=== PATIENT | female | born 1995 | race Caucasian/White ===

== ENCOUNTER 2017-06-07 17:33 | Emergency (ER) | payer OTHER ==
[2017-06-07 17:49] VITALS: BP 120/77; TEMP 98.9; BMI 38.0
[2017-06-07] MEDS ORDERED: CEPHALEXIN MONOHYDRATE 500 MG CAPSULE (UD) PO ONE (18:10)
--- NOTE | 2017-06-07 18:10 | PDOC ---
History of Present Illness - General Chief Complaint: Pain Stated Complaint: TAILBONE PAIN Time Seen by Provider: 06/07/17 17:44 - History of Present Illness Initial Comments: 06/07/17 18:16 "The patient is a 21 year old female with no significant PMH who presents to the emergency department complaining of intermittent episodes of lower back pain beginning approximately 2 days ago. Pt denies any trauma or falls. States that she feels swelling and pain in the middle of her lower back that is worse with sitting down. Pt has had multiple similar episodes in the past that have resolved spontaneously. Denies seeing any drainage or bleeding, denies h/o pilonidal abscess. Denies F/C. The patient denies chest pain, shortness of breath, headache, and dizziness. Denies fevers, chills, nausea, vomiting, diarrhea, and constipation. Denies dysuria, frequency, urgency, and hematuria. Allergies: NKA Past surgical history: Patient denies. Social history: No reported cigarette, alcohol, or drug use. " Past History - Past Medical History Allergies/Adverse Reactions: Allergies Allergy/AdvReac Type Severity Reaction Status Date / Time No Known Allergies Allergy Verified 06/07/17 17:43 Home Medications: Ambulatory Orders Cephalexin [Keflex] 500 mg PO BID #14 capsule 06/07/17 COPD: No - Immunization History Immunization Up to Date: Yes - Suicide/Smoking/Psychosocial Hx Smoking History: Never smoked Have you smoked in the past 12 months: No Hx Alcohol Use: No Drug/Substance Use Hx: No Substance Use Type: None Review of Systems - Review of Systems Comments:: 06/07/17 18:14 "GENERAL/CONSTITUTIONAL: No fever or chills. No weakness. HEAD, EYES, EARS, NOSE AND THROAT: No change in vision. No ear pain or discharge. No sore throat. CARDIOVASCULAR: No chest pain or shortness of breath. RESPIRATORY: No cough, wheezing, or hemoptysis. GASTROINTESTINAL: No nausea, vomiting, diarrhea or constipation. GENITOURINARY: No dysuria, frequency, or change in urination. MUSCULOSKELETAL: No joint or muscle swelling or pain. No neck or back pain. SKIN: + Swelling and redness mid lower back NEUROLOGIC: No headache, vertigo, loss of consciousness, or change in strength/ sensation. ENDOCRINE: No increased thirst. No abnormal weight change. HEMATOLOGIC/LYMPHATIC: No anemia, easy bleeding, or history of blood clots. ALLERGIC/IMMUNOLOGIC: No hives or skin allergy. *Physical Exam - Vital Signs Last Vital Signs Temp Pulse Resp BP Pulse Ox 98.9 F 110 H 16 120/77 100 06/07/17 17:43 06/07/17 17:43 06/07/17 17:43 06/07/17 17:43 06/07/17 17:43 - Physical Exam Comments: 06/07/17 18:13 "GENERAL: Awake, alert, and fully oriented, in no acute distress HEAD: No signs of trauma EYES: PERRLA, EOMI, sclera anicteric, conjunctiva clear ENT: Auricles normal inspection, hearing grossly normal, nares patent, oropharynx clear without exudates. Moist mucosa NECK: Nontender, no stepoffs, Normal ROM, supple, no lymphadenopathy, JVD, or masses LUNGS: Breath sounds equal, clear to auscultation bilaterally. No wheezes, and no crackles HEART: Regular rate and rhythm, normal S1 and S2, no murmurs, rubs or gallops ABDOMEN: Soft, nontender, normoactive bowel sounds. No guarding, no rebound. No masses EXTREMITIES: Normal range of motion, no edema. No clubbing or cyanosis. No cords, erythema, or tenderness NEUROLOGICAL: Cranial nerves II through XII intact. 5/5 strength and sensation in all extremities, Normal speech, normal gait, normal cerebellar function SKIN: + 2cm area of induration at L gluteal cleft, no fluctuance or drainage, mild erythema Medical Decision Making - Medical Decision Making 06/07/17 18:04 21 F with possible infected pilonidal cyst. However, unable to visualize collection on bedside ultrasound. Will empirically tx with abx and have pt f/u in 48 hours. - Keflex - f/u 48 hours Pt is well appearing, with normal vitals. Clinically stable for DC at this time. I discussed the physical exam findings, ancillary test results and final diagnoses with the patient. I answered all of the patient's questions. The patient was satisfied with the care received and felt comfortable with the discharge plan and treatment plan. The patient agrees to follow up with the primary care physician within 24-72 hours. *DC/Admit/Observation/Transfer Diagnosis at time of Disposition: Pilonidal cyst - Discharge Dispostion Disposition: HOME Condition at time of disposition: Good - Referrals Referrals: Candido Ward MD [Primary Care Provider] - Bruce Kenney MD [Staff Physician] - - Patient Instructions Printed Discharge Instructions: Pilonidal Cyst Additional Instructions: You may have an infection of something called a pilonidal cyst. We did not see an abscess on your ultrasound today that we could drain. However, you may still develop an abscess in the next few days, even while taking the antibiotics. superintendent storage area your antibiotics (keflex) at the pharmacy and take it as prescribed. If you do not have some relief of your pain in 48 hours, if you develop fevers or chills, or if your pain or swelling gets worse at any point, return to the ER immediately. Otherwise, follow up with a surgeon for permanent removal of your pilonidal cyst to prevent recurrent infections. - Post Discharge Activity - Attestations Physician Attestion: 06/07/17 18:13 I, Dr. Lewis De La Rosa MD, attest that this document has been prepared under my direction and personally reviewed by me in its entirety. I further attest, that it accurately reflects all work, treatment, procedures and medical decision -making performed by me.
[2017-06-07] MEDS ORDERED: ACETAMINOPHEN 325 MG TABLET (FP) PO ONE (18:16)
[2017-06-07] MEDS ORDERED: CEPHALEXIN MONOHYDRATE 500 MG CAPSULE (UD) ONE (18:20)
[2017-06-07] MEDS ORDERED: ACETAMINOPHEN 325 MG TABLET (FP) ONE (18:20)
[2017-06-07 18:38] VITALS: PULSE 100
== END 2017-06-07 18:42 | disposition home or self-care (01) ==
LOC: FER 17:33
DX: L05.91 Pilonidal cyst without abscess (principal)
CPT/HCPCS: 99282-25

== ENCOUNTER 2017-06-10 20:10 | Emergency (ER) | payer OTHER ==
[2017-06-10 20:16] VITALS: BP 128/83; PULSE 73; TEMP 97.3; BMI 37.6
--- NOTE | 2017-06-10 21:41 | PDOC ---
Suture Removal/Wound Check HPI <Anna Clifton - Last Filed: 06/10/17 22:01> <Jean Carlos Don - Last Filed: 06/10/17 22:02> - History of Present Illness Chief Complaint: Revisit,Wound Recheck Stated Complaint: PILONIDAL CYST/ WOUND CHECK Time Seen by Provider: 06/10/17 20:27 Past History - Past Medical History COPD: No - Immunization History Immunization Up to Date: Yes - Suicide/Smoking/Psychosocial Hx Smoking History: Never smoked Have you smoked in the past 12 months: No Information on smoking cessation initiated: No Hx Alcohol Use: No Drug/Substance Use Hx: No Substance Use Type: None <Anna Clifton - Last Filed: 06/10/17 22:01> <Jean Carlos Don - Last Filed: 06/10/17 22:02> - Past Medical History Allergies/Adverse Reactions: Allergies Allergy/AdvReac Type Severity Reaction Status Date / Time No Known Allergies Allergy Verified 06/10/17 20:11 Home Medications: Ambulatory Orders Cephalexin [Keflex] 500 mg PO BID #14 capsule 06/07/17 *Review of Systems - Review of Systems Able to Perform ROS?: Yes Comments:: 06/10/17 22:01 CONSTITUTIONAL: Absent: fever, no chills, no fatigue EYES: Absent: visual changes ENT: Absent: ear pain, no sore throat CARDIOVASCULAR: Absent: chest pain, no palpitations RESPIRATORY: Absent: cough, no SOB GI: Absent: abdominal pain, no nausea, no vomiting, no constipation, no diarrhea GENITOURINARY: Absent: dysuria, no frequency, no hematuria MUSKULOSKELETAL: Absent: back pain, no arthralgia, no myalgia SKIN: Present: Wound on sacral region. Absent: rash NEURO: Absent: headache All Other Systems: Reviewed and Negative <Jean Carlos Don - Last Filed: 06/10/17 22:02> Medical Decision Making - Medical Decision Making 06/10/17 22:01 The patient is a 21 year old female, with no significant past medical history of , who presents to the emergency department with, a follow up for a pilonidal cyst. As per patient she was diagnosed with a pilonidal cyst on her sacral region. She reports that two days ago her cyst began to drain on its own and her pain has been alleviated. She denies recent fevers, chills, headache or dizziness. She denies recent nausea, vomit, diarrhea or constipation. She denies recent dysuria, frequency, urgency or hematuria. She denies recent chest pain or shortness of breath. Allergies: NKA Past surgical history: None reported. Social history: Nonsmoker. Denies EtOH use and recreational drug use. GENERAL: The patient is awake, alert, and fully oriented, in no acute distress. HEAD:[Normal with no signs of trauma. NEUROLOGICAL: Normal speech, normal gait. PSYCH: Normal mood, normal affect. (+)SKIN: 1.5 x 1.5 nontender, mildly erythematous, mildly indurated area of the superior right aman cleft. Warm, Dry, normal turgor, no rashes noted. <Jean Carlos Don - Last Filed: 06/10/17 22:02> *DC/Admit/Observation/Transfer <Anna Clifton - Last Filed: 06/10/17 22:01> - Attestations Scribe Attestion: 06/10/17 22:02 Documentation prepared by Jean Carlos Don, acting as medical reimbursement specialist for Anna Clifton MD. <Jean Carlos Don - Last Filed: 06/10/17 22:02> Diagnosis at time of Disposition: Pilonidal cyst - Discharge Dispostion Disposition: HOME Condition at time of disposition: Stable - Referrals Referrals: Bruce Kenney MD [Staff Physician] - Call tomorrow - Patient Instructions Printed Discharge Instructions: Pilonidal Cyst Additional Instructions: continue Keflex as prescribed warm compresses to area at least 4 times a day call Dr Kenney's office tomorrow to arrange followup within 5 days return to ER if you have severe pain/swelling in area
== END 2017-06-10 21:58 | disposition home or self-care (01) ==
LOC: FER 20:10
DX: Z48.01 Encounter for change or removal of surgical wound dressing (principal)
CPT/HCPCS: 99281-25

== ENCOUNTER 2017-09-20 20:35 | Emergency (ER) | payer OTHER ==
[2017-09-20 20:47] VITALS: BP 110/80; PULSE 108; TEMP 98.2; BMI 39.9
--- NOTE | 2017-09-20 21:01 | PDOC ---
History of Present Illness - General History Source: Patient Exam Limitations: No Limitations - History of Present Illness Initial Comments: 09/20/17 21:41 The patient is a 22 year old female with a significant PMH of pilonidal cyst who presents to the emergency department with similar pain from her pilonidal cyst. She reports some bilateral back pain since yesterday. She reports some worsening pain when she sits down and leans against the cyst. The patient reports that she was seen 3 months ago to drain a cyst in the same area. She denies any other symptoms. She denies any fever, chills, nausea, vomit, diarrhea , constipation or urinary symptoms. She denies chest pain, shortness of breath, headache and dizziness. The patient denies any other complaints. <Rain Richey - Last Filed: 09/20/17 21:44> - General History Source: Patient Exam Limitations: No Limitations <Pamela Acosta - Last Filed: 09/21/17 01:03> - General Chief Complaint: Abscess Boil Stated Complaint: BUTTOCK PAIN, ABSCESS Time Seen by Provider: 09/20/17 20:51 Past History <Rain Richey - Last Filed: 09/20/17 21:44> - Past Medical History COPD: No Other medical history: H/O PILONIDAL CYST - Immunization History Immunization Up to Date: Yes - Suicide/Smoking/Psychosocial Hx Smoking History: Never smoked Have you smoked in the past 12 months: No Information on smoking cessation initiated: No Hx Alcohol Use: (occasional) Drug/Substance Use Hx: No Substance Use Type: None <Pamela Acosta - Last Filed: 09/21/17 01:03> - Past Medical History Allergies/Adverse Reactions: Allergies Allergy/AdvReac Type Severity Reaction Status Date / Time No Known Allergies Allergy Verified 09/20/17 20:37 Home Medications: Ambulatory Orders Cephalexin [Keflex] 500 mg PO Q6H #28 capsule 09/20/17 Ibuprofen [Motrin -] 600 mg PO QID PRN #28 tablet 09/20/17 Review of Systems - Review of Systems Able to Perform ROS?: Yes Comments:: 09/20/17 21:42 GENERAL/CONSTITUTIONAL: No fever or chills. No weakness. HEAD, EYES, EARS, NOSE AND THROAT: No change in vision. No ear pain or discharge. No sore throat. CARDIOVASCULAR: No chest pain or shortness of breath. RESPIRATORY: No cough, wheezing, or hemoptysis. GASTROINTESTINAL: No nausea, vomiting, diarrhea or constipation. GENITOURINARY: No dysuria, frequency, or change in urination. MUSCULOSKELETAL: (+)lower back pain secondary to pilonidal cyst. No joint or muscle swelling or pain. No neck pain. SKIN: No rash NEUROLOGIC: No headache, vertigo, loss of consciousness, or change in strength/ sensation. ENDOCRINE: No increased thirst. No abnormal weight change. HEMATOLOGIC/LYMPHATIC: No anemia, easy bleeding, or history of blood clots. ALLERGIC/IMMUNOLOGIC: No hives or skin allergy. <Rain Richey - Last Filed: 09/20/17 21:44> *Physical Exam - Vital Signs Last Vital Signs Temp Pulse Resp BP Pulse Ox 98.2 F 108 H 20 110/80 100 09/20/17 20:35 09/20/17 20:35 09/20/17 20:35 09/20/17 20:35 09/20/17 20:35 - Physical Exam Comments: 09/20/17 21:43 GENERAL: The patient is in no acute distress. HEAD: Normal with no signs of trauma. EYES: PERRLA, EOMI, sclera anicteric, conjunctiva clear. ENT: Ears normal, nares patent, oropharynx clear without exudates. Moist mucous membranes. NECK: Normal range of motion, supple without lymphadenopathy, JVD, or masses. LUNGS: Breath sounds equal, clear to auscultation bilaterally. No wheezes, and no crackles. HEART:Regular rate and rhythm, normal S1 and S2 without murmur, rub or gallop. ABDOMEN: Soft, nontender, normoactive bowel sounds. No guarding, no rebound. No masses palpable. EXTREMITIES: Normal range of motion, no edema. No clubbing or cyanosis. No erythema, or tenderness. NEUROLOGICAL: Cranial nerves II through XII grossly intact. Normal speech. No focal neurological deficits. MUSCULOSKELETAL:(+)beader tender to palpation. superior portion of the intergluteal fold has indurated area to the right and left,0.5-1cm on each side. firm and indurated. no fluctuance. no CVA tenderness SKIN: Warm, Dry, normal turgor, no rashes or lesions noted. <Rain Richey - Last Filed: 09/20/17 21:44> - Vital Signs Last Vital Signs Temp Pulse Resp BP Pulse Ox 98.2 F 108 H 20 110/80 100 09/20/17 20:35 09/20/17 20:35 09/20/17 20:35 09/20/17 20:35 09/20/17 20:35 <Pamela Acosta - Last Filed: 09/21/17 01:03> Medical Decision Making - Medical Decision Making 09/20/17 21:16 Ms. Concepcion is a 22-year-old female with a history of pilonidal cyst in the past, no other adequate history. She presents emergency department with a complaint of buttock pain which began yesterday. Given her prior history of pilonidal cyst in June, she decided to come in early for assessment. No known fevers although she is noted to be 99.1 in the emergency department. Patient was supposed to follow up with general surgery but did not because she is afraid of the length of the recovery period after surgical intervention. She has noted no drainage. Has not taken Motrin for pain. Examination: She is well-appearing Heart lungs are normal No abdominal tenderness In the superior portion of the intergluteal fold there is an indurated area just to the right and just left of the fold. This area measures approximately one and 0.5 x 1 cm in diameter on each side. The area is firm and indurated. There is no fluctuance noted. The area is tender to palpation At this time, area does not appear to be ready for incision and drainage. Will ask patient to apply warm compresses. Will ask patient to take antibiotics. Will ask patient to take Motrin for pain. I have encouraged the patient strongly to follow-up with general surgery for definitive management of her cyst. Clinical Impression: Early infection of pilonidal cyst, initial presentation 09/21/17 01:03 <Pamela Acosta - Last Filed: 09/21/17 01:03> *DC/Admit/Observation/Transfer - Attestations Scribe Attestion: 09/20/17 21:42 Documentation prepared by Rain Richey, acting as auditor medical claims for Pamela Acosta MD. <Rain Richey - Last Filed: 09/20/17 21:44> - Discharge Dispostion Decision to Admit order: No <Pamela Acosta - Last Filed: 09/21/17 01:03> Diagnosis at time of Disposition: Pilonidal cyst - Discharge Dispostion Disposition: HOME Condition at time of disposition: Stable - Prescriptions Prescriptions: Cephalexin [Keflex] 500 mg PO Q6H #28 capsule Ibuprofen [Motrin -] 600 mg PO QID PRN #28 tablet PRN Reason: Pain - Referrals Referrals: Bruce Kenney MD [Staff Physician] - Lewis Ramirez MD [Staff Physician] - - Patient Instructions Printed Discharge Instructions: Pilonidal Cyst, DI for Pilonidal Cyst Removal, DI for Skin Abscess Additional Instructions: Ms Concepcion Thank you for coming into the emergency department today. Please be sure to follow up with Dr. Kenney who will be able to remove this cyst Please take antibiotics as prescribed. Please apply warm compresses 2 or 3 times per day. Please take Motrin for pain. You can return in 2 - 3 days for a wound check or when the area that is currently firm is soft You can also return to emergency department for reassessment at any other time for any other concerns or complaints Thank you for coming in today intravenously opportunity to care for you - Post Discharge Activity Forms/Work/School Notes: Back to Work
== END 2017-09-20 21:46 | disposition home or self-care (01) ==
LOC: FER 20:35
DX: L05.91 Pilonidal cyst without abscess (principal)
CPT/HCPCS: 99282-25

== ENCOUNTER 2017-09-22 00:41 | Emergency (ER) | payer OTHER ==
[2017-09-22] MEDS ORDERED: LIDOCAINE 2%/EPINEPHRINE 1:100000 (50 ML MD VIAL) INF ONE (00:54)
[2017-09-22] MEDS ORDERED: LIDO 2%/EPI 1:200000 PRESRVFRE (20 ML SDVIAL) ONE (00:54)
--- NOTE | 2017-09-22 00:54 | PDOC ---
History of Present Illness - General Chief Complaint: Pain, Acute Stated Complaint: INCREASED WOUND PAIN Time Seen by Provider: 09/22/17 00:52 History Source: Patient Exam Limitations: No Limitations - History of Present Illness Initial Comments: 09/22/17 01:28 22 yo F returns due to increased pain Pt pain initially improved with Ibuprofen It then worsened She has been applying warm compresses No fevers or chills ROS: GENERAL/CONSTITUTIONAL: No fever or chills. No weakness. CARDIOVASCULAR: No chest pain or shortness of breath. RESPIRATORY: No cough, wheezing, or hemoptysis. GASTROINTESTINAL: No nausea, vomiting, diarrhea or constipation. GENITOURINARY: No dysuria, frequency, or change in urination. MUSCULOSKELETAL: (+)lower back pain secondary to pilonidal cyst. No joint or muscle swelling or pain. No neck pain. SKIN: Yes: cellulitis NEUROLOGIC: No headache, vertigo, loss of consciousness, or change in strength/ sensation. ENDOCRINE: No increased thirst. No abnormal weight change. PE: GENERAL: The patient is in no acute distress. ABDOMEN: Soft, nontender EXTREMITIES: Normal range of motion, NEUROLOGICAL: Cranial nerves II through XII grossly intact. Normal speech. No focal neurological deficits. SKIN: In the superior portion of the intergluteal fold there area of induration has increased Area of erythema is now 3cm x 4 cm There is a small area of fluctuance on the right medial superior gluteal fold The area is tender to palpation 09/22/17 01:31 Past History - Past Medical History Allergies/Adverse Reactions: Allergies Allergy/AdvReac Type Severity Reaction Status Date / Time No Known Allergies Allergy Verified 09/20/17 20:37 Home Medications: Ambulatory Orders Cephalexin [Keflex] 500 mg PO Q6H #28 capsule 09/20/17 Ibuprofen [Motrin -] 600 mg PO QID PRN #28 tablet 09/20/17 Clindamycin [Cleocin -] 300 mg PO Q6HPO #20 capsule 09/22/17 COPD: No - Immunization History Immunization Up to Date: Yes - Suicide/Smoking/Psychosocial Hx Smoking History: Never smoked Have you smoked in the past 12 months: No Hx Alcohol Use: (occasional) Drug/Substance Use Hx: No Substance Use Type: None Procedures - Incision and Drainage I&D Site: Bilateral: Other Betadine cleansed: No (Chlorhexidine) Anesthesia: 2% Lidocaine w/ Epi Volume(ml): 2 Blade Size: 11 Attempts: 1 Iodinated Packin/4 in Plain Packing: Yes Complications: none Dressing: Yes Medical Decision Making - Medical Decision Making 09/22/17 01:32 Drainage procedure performed with return of 5-7 cc of malodorous purulence There is still a circumfrencial area around incision which is indurated This area was expressed vigirously with no pus draining Pt tolerate procedure well 1/4 inch packing placed I have explained that wound will continue to drain I have encouraged her to continue to apply warm compresses Pt strongly encouraged to follow up with PMD and WITH DR KENNEY Clinical Impression: infected pilonydal cyst, initial presentation 09/22/17 02:42 Also of note: pt reports some lip swelling/cheek swelling of the right face ?Related to keflex (which she has had before) Will switch to clindamycin *DC/Admit/Observation/Transfer Diagnosis at time of Disposition: Pilonidal cyst - Discharge Dispostion Disposition: HOME Condition at time of disposition: Stable Decision to Admit order: No - Prescriptions Prescriptions: Clindamycin [Cleocin -] 300 mg PO Q6HPO #20 capsule - Referrals Referrals: Zachariah Ward MD [Primary Care Provider] - Bruce Kenney MD [Staff Physician] - Lewis Ramirez MD [Staff Physician] - - Patient Instructions Printed Discharge Instructions: DI for Incision and Drainage of a Skin Abscess Additional Instructions: Leydi Thank you for returning to the ER Your abscess was open and drained. A thin long piece of ribbon gauze (also called packing) was tucked inside the wound, to prevent the skin from resealing shut (and the pus recollecting inside all over again). If it is covered in pus and blood, that is good, because it means that the abscess is draining well. Leave packing in place until sunday morning You can then take a warm bath or shower, this will make it easy for the packing to come out You can pull the dirty gauze out, and gently tuck a fresh strip of ribbon gauze. Gently tuck in more gauze until the hole is filled, but not filled tightly. Make sure some gauze is left sticking out of the wound (so that you can pull it out in a few days). After Sunday, the packing will need to be changed every other day. Sometimes the packing falls out on its own, this is nothing to worry about You MUST follow up with Dr Kenney or Dr Ramirez next week If you/your family have trouble changing your packing, come to the ER. I have changed your antibiotics. Although it is not clear to me that the swelling in your face is related to the antibiotic, it is probably best to switch antibiotics to be on the safe side Continue Tylenol/Motrin for pain Monitor for fevers or chills, red skin in the area of the abscess Come back to the ER if you notice this - Post Discharge Activity Forms/Work/School Notes: Back to Work
[2017-09-22 01:06] VITALS: BP 132/84; PULSE 88; TEMP 98.7; BMI 39.9
== END 2017-09-22 02:06 | disposition home or self-care (01) ==
LOC: FER 00:41
PROC: 0H98XZZ Drainage of Buttock Skin, External Approach (ICD-10-PCS; principal; 2017-09-22)
DX: L05.91 Pilonidal cyst without abscess (principal)
CPT/HCPCS: 10080; 87070; 87205; 99281-25

== ENCOUNTER 2017-12-12 13:30 | Emergency (ER) | payer OTHER ==
[2017-12-12 13:41] VITALS: BP 125/86; PULSE 78; TEMP 98.4; BMI 39.1
--- NOTE | 2017-12-12 13:41 | PDOC ---
Rapid Medical Evaluation Time Seen by Provider: 12/12/17 13:37 Medical Evaluation: Allergies Allergy/AdvReac Type Severity Reaction Status Date / Time No Known Allergies Allergy Verified 09/20/17 20:37 12/12/17 13:38 The patient presents to the ED with: pilonidal cyst x 1 week, hx of the same, sent by dr mullen for I& D. no fever, no bowel c/o The patient on brief exam: vss The patient ordered for: The patient to proceed to the ED Discharge Disposition - Diagnosis Pilonidal abscess - Referrals Referrals: Zachariah Ward MD [Primary Care Provider] - - Patient Instructions - Post Discharge Activity
--- NOTE | 2017-12-12 14:24 | PDOC ---
History of Present Illness - General Chief Complaint: Wound Stated Complaint: Abscess Boil Time Seen by Provider: 12/12/17 13:37 - History of Present Illness Initial Comments: 22-year-old female without any significant comorbidities presents for evaluation of an idea of a pilonidal cyst sent here by her general surgeon who is scheduled to meet her in the emergency room. She has no systemic symptoms. 12/12/17 14:23 Past History - Past Medical History Allergies/Adverse Reactions: Allergies Allergy/AdvReac Type Severity Reaction Status Date / Time ibuprofen Allergy Verified 12/12/17 13:41 Home Medications: Ambulatory Orders Ibuprofen [Motrin -] 600 mg PO QID PRN #28 tablet 09/20/17 COPD: No - Immunization History Immunization Up to Date: Yes - Suicide/Smoking/Psychosocial Hx Smoking History: Never smoked Have you smoked in the past 12 months: No Information on smoking cessation initiated: No Hx Alcohol Use: No Drug/Substance Use Hx: No Substance Use Type: None Review of Systems - Review of Systems Integumentary: Yes: See HPI, Lesions All Other Systems: Reviewed and Negative *Physical Exam - Vital Signs Last Vital Signs Temp Pulse Resp BP Pulse Ox 98.4 F 78 16 125/86 100 12/12/17 13:39 12/12/17 13:39 12/12/17 13:39 12/12/17 13:39 12/12/17 13:39 - Physical Exam Comments: 12/12/17 14:23 HEAD: NC/AT EYES: Conjuntiva clear NEUROLOGIC: No gross sensory or motor deficits, NVID SKIN: Normal color and temperature no lesions or rashes ED Treatment Course - LABORATORY CBC & Chemistry Diagram: 12/12/17 15:45 12/12/17 15:45 Medical Decision Making - Medical Decision Making Discussed with Dr. Kenney she was paged, I will await callback. According to the patient she will be doing the incision and drainage of this abscess. 12/12/17 14:22 12/12/17 14:[address] Kenney, who will I&D pt in ER today, ordered labs and UCG as well as PIV as per Dr Kenney 12/12/17 19:54 I&D done by Dr Kenney *DC/Admit/Observation/Transfer Diagnosis at time of Disposition: Pilonidal abscess - Discharge Dispostion Disposition: HOME Condition at time of disposition: Stable Decision to Admit order: No - Referrals Referrals: Zachariah Ward MD [Primary Care Provider] - - Patient Instructions Printed Discharge Instructions: Pilonidal Cyst - Post Discharge Activity
[2017-12-12 16:02] LABS: BASO % 0.7 % (0-2.0); EOS % 1.4 % (0-4.5); HEMATOCRIT 42.1 % (32.4-45.2); HEMOGLOBIN 13.7 GM/dL (10.7-15.3); LYMPH % 21.7 % (8-40); MCH 27.7 pg (25.7-33.7); MCHC 32.4 g/dl (32.0-36.0); MEAN CELL VOLUME 85.3 fl (80-96); MEAN PLT VOLUME 7.6 fl (7.5-11.1); NEUT % 73.2 % (42.8-82.8); PLATELET COUNT 327 K/MM3 (134-434); RBC 4.94 M/mm3 (3.60-5.2); RDW 15.7 % (11.6-15.6); WHITE BLOOD COUNT 8.3 K/mm3 (4.0-10.0)
[2017-12-12] MEDS ORDERED: LIDOCAINE 1%/EPI 1:100000 (20 ML MULTI DOSE VIAL) ONE (16:04)
[2017-12-12 16:29] LABS: ALBUMIN 3.6 g/dl (3.4-5.0); ALK PHOS 90 U/L (45-117); ANION GAP 3 MMOL/L (8-16); BILIRUBIN,TOTAL 0.4 mg/dL (0.2-1); BLOOD UREA NITROGEN 7 mg/dL (7-18); CALCIUM 9.6 mg/dL (8.5-10.1); CHLORIDE 106 mmol/L (98-107); CO2 26 mmol/L (21-32); CREATININE 0.7 mg/dL (0.55-1.3); GLUCOSE,RANDOM 128 mg/dL (74-106); POTASSIUM 4.5 mmol/L (3.5-5.1); SGOT/AST 15 U/L (15-37); SGPT/ALT 24 U/L (13-61); SODIUM 134 mmol/L (136-145); TOT PROT 8.1 g/dl (6.4-8.2)
--- NOTE | 2017-12-12 16:33 | CONSULT ---
Consult Consult Specialty:: General Surgery Reason for Consultation:: pilonidal abscess, partially drained - History of Present Illness Chief Complaint: recurrent pilonidal abscess History of Present Illness: 22y F with recurrent pilonidal abscesses, last flare in September, presented to my clinic today with another flare that began over the weekend. It had drained pus several days ago, and she has expressed all possible from it, with improvement but not resolution. She was sent to ER for wbc check, I&D and antibiotics. WBC is 8, she is afebrile, and test is negative. She has chronically firm tissue in the area, and notes only mild pain remaining. There is still a sore there. She had been taking ibuprofen 800mg pills prn for the discomfort, which she had no reaction to during the day, but at night, has had swelling of her lips and face, and is not sure if it may be the ibuprofen. This happened to her last time as well, and she only takes ibuprofen during these flares. She has not see her PMD recently, and is not taking antibiotics. - History Source History Provided By: Patient Limitations to Obtaining History: No Limitations - Past Medical History Reproductive: No: Postmenopausal ...: No Dermatology: Yes: Other (recurrent pilonidal abscess, two in past) - Past Surgical History Past Surgical History: Yes: None Additional Surgical History: I&D pilonidal abscess 09/19 - Alcohol/Substance Use Hx Alcohol Use: No History of Substance Use: reports: None - Smoking History Smoking history: Never smoked Have you smoked in the past 12 months: No - Social History Usual Living Arrangement: With Parent ADL: Independent Occupation: teaching Home Medications - Allergies Allergies/Adverse Reactions: Allergies Allergy/AdvReac Type Severity Reaction Status Date / Time ibuprofen Allergy Verified 12/12/17 13:41 - Home Medications Home Medications: Ambulatory Orders Acetaminophen W/ Codeine #3 [Tylenol # 3 -] 1 tab PO Q4H PRN #15 tablet MDD 6 Sulfamethoxazole/Trimethoprim [Bactrim Ds -] 1 tab PO BID #14 tablet 12/12/17 Family Disease History - Family Disease History Family History: Unremarkable (noncontributory) Review of Systems - Review of Systems Constitutional: denies: Chills, Fever Eyes: denies: Blurred Vision, Recent Change in Vision HENT: denies: Difficult Swallowing, Nasal Congestion, Throat Pain Neck: denies: Swollen Glands, Tenderness Cardiovascular: denies: Chest Pain, Palpitations Respiratory: denies: Cough, SOB Gastrointestinal: reports: Constipation, Nausea (Sunday briefly). denies: Abdominal Pain, Diarrhea, Vomiting Genitourinary: denies: Burning, Dysuria Musculoskeletal: denies: Back Pain, Joint Pain, Muscle Pain Integumentary: reports: Lump (pilonidal, with hpi), Wound (with hpi), Other ( drainage, with hpi) Neurological: denies: Dizziness, Headache Psychiatric: denies: Anxiety, Depression Physical Exam Vital Signs: Vital Signs Temperature 98.4 F 12/12/17 13:39 Pulse Rate 78 12/12/17 13:39 Respiratory Rate 16 12/12/17 13:39 Blood Pressure 125/86 12/12/17 13:39 O2 Sat by Pulse Oximetry (%) 100 12/12/17 13:39 Constitutional: Yes: No Distress, Calm, Obese Eyes: Yes: Conjunctiva Clear, EOM Intact HENT: Yes: Atraumatic, Normocephalic Neck: Yes: Supple, Trachea Midline Cardiovascular: Yes: Regular Rate and Rhythm. No: Murmur Respiratory: Yes: Regular, CTA Bilaterally Gastrointestinal: Yes: Soft, Abdomen, Obese. No: Tenderness ...Rectal Exam: Yes: Deferred (CHRISTINA), Inflammation (pilonidal area/aman cleft with small ulcerated wound just right of midline with tiny yellow center, no drainage expressible, somewhat tender, swollen/mildly indurated around superior cleft in horseshoe fashion with minimal erythema, no fluctuance) Renal/: No: CVA Tenderness - Left, CVA Tenderness - Right Musculoskeletal: No: Joint Stiffness, Joint Swelling Extremities: No: Cool, Cyanosis Edema: No Peripheral Pulses WNL: Yes Integumentary: Yes: Other (see above/pilonidal wound) Wound/Incision: Yes: Open to air, Unapproximated, Other (see above, pilonidal). No: Draining Neurological: Yes: Alert, Oriented Psychiatric: Yes: Alert, Oriented Labs: CBC, BMP 12/12/17 15:45 12/12/17 15:45 preg neg Problem List - Problems (1) Pilonidal abscess Assessment/Plan: Discussed with patient risks, benefits and alternatives of incision and drainage of pilonidal abscess, including but not limited to bleeding, infection , pain; alternatives include antibiotics, delayed or no surgery - risks of this include progression of abscess, need for more extensive procedure, sepsis. Patient agreeable to procedure - will perform under local anesthesia in ER. ER to check cbc, give pain meds prn will get wound culture if pus present po antibiotics x 1 week - Bactrim, first dose given in ER Tylenol prn for pain, 1-3 regular strength, start with 2 q6h prn T#3 Rx by ER in case she needs anything stronger I&D done under local - only small amount of bloody drainage, no purulence no culture taken packed and dressed - see separate note Wound care - leave dressing until tomorrow night, then start daily shower with packing out/dressing off, repack with 1/4" iodoform, cover with gauze and tape. Mother given supplies to last at least the week. Also discussed considering keeping area free of hair, shaving when able, or considering permanent hair removal. She will f/u with me next Sunday in clinic as scheduled. Code(s): L05.01 - PILONIDAL CYST WITH ABSCESS (2) Coccygeal pain Code(s): M53.3 - SACROCOCCYGEAL DISORDERS, NOT ELSEWHERE CLASSIFIED (3) Other obesity due to excess calories Code(s): E66.09 - OTHER OBESITY DUE TO EXCESS CALORIES
[2017-12-12 16:39] LABS: INR 0.97 (0.83-1.09); PROTHROMBIN TIME (PATIENT) 11.4 SEC (9.7-13.0)
[2017-12-12] MEDS ORDERED: SULFAMETHOXAZOLE/TRIMETHOPRIM 800MG/160MG D.S. TABLET PO ONE (20:01)
[2017-12-12] MEDS ORDERED: SULFAMETHOXAZOLE/TRIMETHOPRIM 800MG/160MG D.S. TABLET ONE (20:03)
--- NOTE | 2017-12-12 20:14 | PROC ---
Incision and Drainage Indication/Location: recurrent pilonidal abscess Risks and Benefits Explained: Yes Consent on Chart: No (verbal consent) Betadine cleansed: Yes Anesthesia: 1% Lidocaine w/ Epi (8ml) Blade Size: 15 Drainage: scant, sanguinous Irrigated with Normal Saline: No Iodinated Packin/4 in Sterile Dressing Applied: Yes - Remarks Remarks: Betadine prep, local infiltrated around and into base of wound; probed briefly with cotton tip prior to prep with no purulence encountered. Small, previously spontaneously drained opening widened with scalpel, small cavity explored with fingertip, small piece of possible cyst wall excised, sanchez scraped slightly with scalpel edge, no purulence encountered, no culture taken, packed with 1/4" iodoform. Demonstrated packing technique to mother, who will continue daily packings at home starting tomorrow night.
== END 2017-12-12 20:05 | disposition home or self-care (01) ==
LOC: JERFT 13:30
PROC: 0H98XZZ Drainage of Buttock Skin, External Approach (ICD-10-PCS; principal; 2017-12-12)
DX: L05.01 Pilonidal cyst with abscess (principal)
CPT/HCPCS: 36415; 80053; 84703; 85025; 85610; 87040; 99281-25

== ENCOUNTER 2018-06-25 15:21 | Emergency (ER) | payer OTHER ==
[2018-06-25 15:37] VITALS: BP 124/88; PULSE 84; TEMP 97.8; BMI 39.4
--- NOTE | 2018-06-25 16:01 | PDOC ---
History of Present Illness - General Chief Complaint: Injury Stated Complaint: SLIP AND FALL LAST NIGHT PAIN TO BOTH KNEES Time Seen by Provider: 06/25/18 15:29 - History of Present Illness Initial Comments: 06/25/18 15:54 22yo F with no PMH presents to the ED with L knee pain after a fall from standing height yesterday. Pt reports she was at work and was mopping the wet floor when she slipped and her fell with her legs almost in a split. She reports immediate pain in medial knees b/l. She was able to finish her shift and drive home. Did not need pain meds. Overnight, the pain got worse in her left knee prompting her to come to the ED today. Did not take any pain medication. Able to walk. No previous injuries to knee. Did not injury any other part of her body yesteday, no head strike or LOC Pt has been in her [facility], denies f/c, n/v/d/, cp/sob, abd pain, headache, focal weakness or numbness. Social: none Past History - Past Medical History Allergies/Adverse Reactions: Allergies Allergy/AdvReac Type Severity Reaction Status Date / Time ibuprofen Allergy Intermediate Swelling Verified 06/25/18 15:25 Home Medications: Ambulatory Orders NK [No Known Home Medication] 06/25/18 COPD: No - Immunization History Immunization Up to Date: Yes - Suicide/Smoking/Psychosocial Hx Smoking History: Never smoked Have you smoked in the past 12 months: No Information on smoking cessation initiated: No Hx Alcohol Use: Yes (SOCIAL) Drug/Substance Use Hx: No Substance Use Type: None Review of Systems - Review of Systems Comments:: 06/25/18 16:10 GENERAL/CONSTITUTIONAL: No fever or chills. No weakness. HEAD, EYES, EARS, NOSE AND THROAT: No change in vision. No ear pain or discharge. No sore throat. GASTROINTESTINAL: No nausea, vomiting, diarrhea or constipation. GENITOURINARY: No dysuria, frequency, or change in urination. CARDIOVASCULAR: No chest pain or shortness of breath. RESPIRATORY: No cough, wheezing, or hemoptysis. MUSCULOSKELETAL: + L knee pain. No neck or back pain. SKIN: No rash NEUROLOGIC: No headache, vertigo, loss of consciousness, or change in strength/ sensation. ENDOCRINE: No increased thirst. No abnormal weight change. HEMATOLOGIC/LYMPHATIC: No anemia, easy bleeding, or history of blood clots. ALLERGIC/IMMUNOLOGIC: No hives or skin allergy. *Physical Exam - Vital Signs Last Vital Signs Temp Pulse Resp BP Pulse Ox 97.8 F 84 16 124/88 100 06/25/18 15:25 06/25/18 15:25 06/25/18 15:25 06/25/18 15:25 06/25/18 15:25 - Physical Exam Comments: 06/25/18 15:55 GENERAL: Awake, alert, and fully oriented, in no acute distress. Pleasant. HEAD: No signs of trauma EYES: PERRLA, EOMI, sclera anicteric, conjunctiva clear ENT: Moist mucosa BACK: no midline spinal ttp, stepoffs or deformities LUNGS: Breath sounds equal, clear to auscultation bilaterally. No wheezes, and no crackles HEART: Regular rate and rhythm, normal S1 and S2, no murmurs, rubs or gallops ABDOMEN: Soft, nontender, normoactive bowel sounds. No guarding, no rebound. No masses EXTREMITIES: LLE with 2+ distal pulses. L knee with mild edema, soft compartments, no gross deformities, no redness or ecchymosis, +ttp to medial aspect of knee. +pain with valgus stress, no pain with varus stress. No instabiltiy with cassidy's test. NEUROLOGICAL: Normal speech, cranial nerves intact, 5/5 strength in all 4 extremities, normal sensation to light touch in all 4 extremities, normal gait, normal tone SKIN: Warm, Dry, normal turgor, no rashes or lesions noted. Medical Decision Making - Medical Decision Making 06/25/18 15:56 22yo F presents to the ED with L medial knee pain after fall last night Exam consistent with likely MCL ligamentous injury Low likelihood of bony injury although XR obtained which shows no fracture on my read Initially pt declined pain meds, later requested tylenol which provided relief Will place in knee immobilizer and refer to ortho for f/u Pt in agreement with plan I discussed the physical exam findings, ancillary test results and final diagnoses with the patient. I answered all of the patient's questions. The patient was satisfied with the care received and felt comfortable with the discharge plan and treatment plan. The patient will call their primary care physician within 24 hours to arrange follow-up and will return to the Emergency Department with any new, persistent or worsening symptoms. *DC/Admit/Observation/Transfer Diagnosis at time of Disposition: Fall, Knee pain, acute, Leg pain - Discharge Dispostion Disposition: HOME Condition at time of disposition: Stable Decision to Admit order: No - Referrals Referrals: Candido Ward MD [Primary Care Provider] - - Patient Instructions Printed Discharge Instructions: DI for Knee Pain, How to Use a Knee Immobilizer Additional Instructions: Follow up with the orthopedic doctor within 1 week Take tylenol as needed for pain - follow the instructions on the label Keep your leg elevated as much as possible and apply ice 3-4 times a day for 20 minutes Return to the emergency department if you have any new, worsening or concerning symptoms - Post Discharge Activity - Attestations Physician Attestion: 06/25/18 18:24 I, Dr. Kristin Dumont MD, attest that this document has been prepared under my direction and personally reviewed by me in its entirety. I further attest, that it accurately reflects all work, treatment, procedures and medical decision -making performed by me.
[2018-06-25] MEDS ORDERED: ACETAMINOPHEN 500 MG TABLET (FP) PO ONE (17:06)
[2018-06-25] MEDS ORDERED: ACETAMINOPHEN 325 MG TABLET (FP) ONE (17:08)
== END 2018-06-25 18:34 | disposition home or self-care (01) ==
LOC: FER 15:21
DX: M25.562 Pain in left knee (principal); M79.605 Pain in left leg; W01.0XXA Fall on same level from slipping, tripping and stumbling without subsequent striking against object, initial encounter; Y93.E5 Activity, floor mopping and cleaning; Y92.89 Other specified places as the place of occurrence of the external cause; Y99.0 Civilian activity done for income or pay
CPT/HCPCS: 73562-TC-LT-FY; 99282-25

== ENCOUNTER 2020-01-24 17:28 | Emergency (ER) | payer OTHER | END 2020-01-24 18:17 | disposition home or self-care (01) | LOC: JVIRT 17:28 | DX: R09.81 Nasal congestion (principal); U07.1 COVID-19 | CPT/HCPCS: C9803; Q3014-GT; U0003 ==

== ENCOUNTER 2020-09-03 18:54 | Emergency (ER) | payer OTHER ==
[2020-09-03 19:00] VITALS: BP 145/87; PULSE 96; TEMP 98; BMI 45.1
== END 2020-09-03 20:12 | disposition home or self-care (01) ==
LOC: FER 18:54
DX: N92.0 Excessive and frequent menstruation with regular cycle (principal)
CPT/HCPCS: 99281-25

== ENCOUNTER 2020-10-10 13:17 | Emergency (ER) | payer OTHER ==
[2020-10-12 14:07] LABS: SARS-CoV-2 NAA Not Detected (Not Detected)
== END 2020-10-10 16:08 | disposition home or self-care (01) ==
LOC: JVIRT 13:17
DX: Z11.52 Encounter for screening for COVID-19 (principal)
CPT/HCPCS: C9803; Q3014-GT; U0003; U0005

== ENCOUNTER 2021-09-21 20:17 | Emergency (ER) | payer OTHER ==
[2021-09-21 20:37] VITALS: BP 137/69; PULSE 111; TEMP 98.4; BMI 46.6
== END 2021-09-21 21:40 | disposition home or self-care (01) ==
LOC: FER 20:17
DX: J20.9 Acute bronchitis, unspecified (principal)
CPT/HCPCS: 0241U-QW; 99283-25

== ENCOUNTER 2022-12-07 19:15 | Emergency (ER) | payer OTHER ==
[2022-12-07 19:31] VITALS: BP 118/74; PULSE 96; RESP 16; TEMP 98.4; BMI 41.8
[2022-12-07] MEDS ORDERED: KETOROLAC TROMETHAMINE 30 MG/1 ML VIAL IVPUSH ONE (19:54)
[2022-12-07] MEDS ORDERED: SODIUM CHLORIDE 1,000 ML IV SCH (20:00)
[2022-12-07] MEDS ORDERED: KETOROLAC TROMETHAMINE 30 MG/1 ML VIAL ONE (20:16)
[2022-12-07 20:30] LABS: HEMATOCRIT 31.9 % (32.4-45.2); HEMOGLOBIN 9.6 G/dL (10.7-15.3); MCH 20.6 pg (25.7-33.7); MCHC 30.1 g/dl (32.0-36.0); MEAN CELL VOLUME 68.6 fl (80-96); MEAN PLT VOLUME 7.8 fl (7.5-11.1); PLATELET COUNT 497.3 10^3/uL (134-434); RBC 4.65 10^6/uL (3.60-5.2); RDW 20.7 % (11.6-15.6)
[2022-12-07 20:46] LABS: ALBUMIN 4.7 g/dl (3.4-5.0); BILIRUBIN,TOTAL 0.4 mg/dl (0.2-1); BLOOD UREA NITROGEN 13.9 mg/dl (7-18); CALCIUM 9.6 mg/dl (8.5-10.1); CREATININE 0.8 mg/dl (0.6-1.3); SGOT/AST 23.3 U/L (15-37); SGPT/ALT 19.6 U/L (7-52); TOT PROT 8.1 g/dl (6.4-8.2)
[2022-12-07 20:51] LABS: POTASSIUM 4.4 mmol/L (3.5-5.1)
[2022-12-07] MEDS ORDERED: SODIUM CHLORIDE 1,000 ML IV ONE (20:51)
== END 2022-12-07 21:43 | disposition home or self-care (01) ==
LOC: FER 19:15
PROC: 3E0333Z Introduction of Anti-inflammatory into Peripheral Vein, Percutaneous Approach (ICD-10-PCS; principal; 2022-12-07)
PROC: 3E0337Z Introduction of Electrolytic and Water Balance Substance into Peripheral Vein, Percutaneous Approach (ICD-10-PCS; 2022-12-07)
DX: N92.1 Excessive and frequent menstruation with irregular cycle (principal); R42 Dizziness and giddiness
CPT/HCPCS: 36415; 80053; 81025; 85027; 99284-25

== ENCOUNTER 2024-05-17 01:09 | Emergency (ER) | payer OTHER ==
[2024-05-17 01:28] VITALS: BP 153/105; RESP 18; TEMP 98.2; BMI 48.0
[2024-05-17 02:22] LABS: BASO % 0.5 % (0-2.0); EOS % 1.3 % (0-4.5); HEMATOCRIT 37.5 % (32.4-45.2); HEMOGLOBIN 11.9 GM/dL (10.7-15.3); LYMPH % 28.5 % (8-40); MCH 23.2 pg (25.7-33.7); MCHC 31.7 g/dl (32.0-36.0); MEAN CELL VOLUME 73.3 fl (80-96); MEAN PLT VOLUME 7.4 fl (7.5-11.1); MONO % 6.8 % (3.8-10.2); NEUT % 62.9 % (42.8-82.8); PLATELET COUNT 411 10^3/uL (134-434); RBC 5.12 M/mm3 (3.60-5.2); RDW 18.3 % (11.6-15.6); WHITE BLOOD COUNT 12.5 K/mm3 (4.0-10.0)
[2024-05-17 03:02] VITALS: PULSE 92
== END 2024-05-17 03:37 | disposition home or self-care (01) ==
LOC: FER 01:09
DX: N94.6 Dysmenorrhea, unspecified (principal); N93.8 Other specified abnormal uterine and vaginal bleeding; R42 Dizziness and giddiness; R00.0 Tachycardia, unspecified
CPT/HCPCS: 36415; 81025; 85025; 99283-25